=== PATIENT | female | born 1945 | race African-American/Black ===

== ENCOUNTER 2019-11-14 13:07 | Inpatient (IN) ==
[2019-11-14] MEDS ORDERED: ALBUTEROL 2.5 MG/3 ML NEB RESP TX PRN (15:16)
[2019-11-14] MEDS ORDERED: ONDANSETRON 4 MG/2 ML VIAL IV PRN (15:16)
[2019-11-14] MEDS ORDERED: FUROSEMIDE 40 MG/4 ML VIAL IV ONE (15:24)
[2019-11-14] MEDS ORDERED: methylPREDNISolone SOD SUC 40 MG/1 ML VIAL IV SCH (15:30)
[2019-11-14 16:51] LABS: ABG Base Excess -0.4 MMOL/L (-2.5-2.5); ABG PCO2 42.8 MM HG (35-48); ABG PH 7.376 (7.35-7.45); ABG PO2 76.6 MM HG (80-95); ABG TCO2 20.8 MMOL/L (23-27)
[2019-11-14] MEDS: ASCORBIC ACID 500 MG TABLET PO SCH (17:08)
[2019-11-14] MEDS: ZINC GLUCONATE 50 MG TABLET PO SCH (17:08)
[2019-11-14] MEDS: methylPREDNISolone SOD SUC 125 MG/2 ML VIAL IV SCH ×2 (17:09→21:11)
[2019-11-14] MEDS: AZITHROMYCIN INJ 500 MG in SODIUM CHLORIDE 0.9% 250 ML IV SCH (17:10)
[2019-11-14 17:51] LABS: Basophils % 0.2 % (0.0-0.8); Hemoglobin 17.6 GM/DL (12.0-16.0); Immature Granulocytes % 0.2 %; Immature Granulocytes Absolute 0.01 #; Lymphocytes # 0.6 10*3/uL (1.4-4.0); Lymphocytes % 13.9 % (21.3-54.2); Mean Platelet Volume 10.8 FL (9.6-12.0); Monocytes % 3.9 % (1.7-12.7); Neutrophils % 81.8 % (38.7-73.9); Platelet Count 187 T/CUMM (130-400); Red Blood Count 5.73 MC/CUMM (3.8-5.5); Red Cell Distribution Width 13.4 % (9.3-17.3); White Blood Count 4.6 T/CUMM (4-12)
[2019-11-14 18:07] LABS: Calcium 9.7 MG/DL (8.5-10.1); Osmolality,Calculated 284.3 MOS/KG (273-304)
[2019-11-14 18:09] LABS: INR 1.7; PT Patient Result 17.4 SECS (9.8-11.9)
[2019-11-14 18:18] LABS: Ferritin 205.2 ng/ml (8-252)
[2019-11-14] MEDS ORDERED: WARFARIN 5 MG TABLET PO ONE (18:38)
[2019-11-14] MEDS ORDERED: PNEUMOCOCCAL VACCINE (13 VALENT) 0.5 ML SYRINGE IM ONE (19:29)
[2019-11-14] MEDS: PHENYTOIN ER 100 MG CAPSULE PO SCH (20:40)
[2019-11-14] MEDS: ALBUTEROL/IPRATROPIUM 3 ML NEB RESP TX SCH (23:09)
[2019-11-15] MEDS: ALBUTEROL/IPRATROPIUM 3 ML NEB RESP TX SCH ×2 (01:16→09:53)
[2019-11-15 03:12] LABS: Basophils % 0.2 % (0.0-0.8); Hematocrit 51.2 VOL% (35.7-47.0); Hemoglobin 16.7 GM/DL (12.0-16.0); Immature Granulocytes % 0.2 %; Immature Granulocytes Absolute 0.01 #; Lymphocytes # 0.8 10*3/uL (1.4-4.0); Lymphocytes % 13.6 % (21.3-54.2); Mean Corpuscular HGB Conc 32.6 GM/DL (32-36); Mean Corpuscular Volume 92.9 FL (87-102); Mean Platelet Volume 10.8 FL (9.6-12.0); Monocytes % 2.6 % (1.7-12.7); Neutrophils % 83.4 % (38.7-73.9); Platelet Count 189 T/CUMM (130-400); Red Blood Count 5.51 MC/CUMM (3.8-5.5); White Blood Count 6.1 T/CUMM (4-12)
[2019-11-15 03:25] LABS: Calcium 8.9 MG/DL (8.5-10.1); Osmolality,Calculated 285.3 MOS/KG (273-304)
[2019-11-15] MEDS: methylPREDNISolone SOD SUC 125 MG/2 ML VIAL IV SCH ×2 (05:15→09:38)
[2019-11-15] MEDS ORDERED: hydrALAZINE 20 MG/1 ML VIAL IV PRN (08:29)
[2019-11-15] MEDS ORDERED: ENOXAPARIN 40 MG/0.4 ML SYRINGE SUBCUT SCH (09:30)
[2019-11-15] MEDS: LISINOPRIL/HCTZ 20-25 MG TABLET PO SCH (09:31)
[2019-11-15] MEDS: MULTIVITAMIN (CENTRUM) TABLET PO SCH (09:31)
[2019-11-15] MEDS: ZINC GLUCONATE 50 MG TABLET PO SCH (09:31)
[2019-11-15] MEDS: METOPROLOL SUCCINATE XL 50 MG TABLET PO SCH (09:32)
[2019-11-15] MEDS: POTASSIUM CHLORIDE 20 MEQ TABLET PO SCH (09:32)
[2019-11-15] MEDS: amLODIPine 10 MG TABLET PO SCH (09:32)
[2019-11-15] MEDS: PANTOPRAZOLE 40 MG TABLET PO SCH (09:32)
[2019-11-15] MEDS: methylPREDNISolone SOD SUC 40 MG/1 ML VIAL IV SCH ×3 (09:32→23:51)
[2019-11-15] MEDS: PHENYTOIN ER 100 MG CAPSULE PO SCH ×2 (09:32→21:08)
[2019-11-15] MEDS: ASCORBIC ACID 500 MG TABLET PO SCH (09:32)
[2019-11-15] MEDS: NON-FORMULARY MEDICATION (Fluticasone-Umeclidin-Vilanter [Trelegy Ellipta] 100-62.5-25 mcg INH SCH (09:37)
[2019-11-15] MEDS: SIMVASTATIN 20 MG TABLET PO SCH (09:39)
[2019-11-15] MEDS: ALBUTEROL INHALER 18 GM INH SCH ×2 (14:27→18:07)
[2019-11-15] MEDS: AZITHROMYCIN INJ 500 MG in SODIUM CHLORIDE 0.9% 250 ML IV SCH (17:00)
[2019-11-16] MEDS ORDERED: ENOXAPARIN 60 MG/0.6 ML SYRINGE SUBCUT SCH (08:00)
[2019-11-16] MEDS: PHENYTOIN ER 100 MG CAPSULE PO SCH (08:45)
[2019-11-16] MEDS: SIMVASTATIN 20 MG TABLET PO SCH (08:45)
[2019-11-16] MEDS: LISINOPRIL/HCTZ 20-25 MG TABLET PO SCH (08:45)
[2019-11-16] MEDS: ASCORBIC ACID 500 MG TABLET PO SCH (08:46)
[2019-11-16] MEDS: ZINC GLUCONATE 50 MG TABLET PO SCH (08:46)
[2019-11-16] MEDS: MULTIVITAMIN (CENTRUM) TABLET PO SCH (08:46)
[2019-11-16] MEDS: POTASSIUM CHLORIDE 20 MEQ TABLET PO SCH (08:46)
[2019-11-16] MEDS: METOPROLOL SUCCINATE XL 50 MG TABLET PO SCH (08:47)
[2019-11-16] MEDS: amLODIPine 10 MG TABLET PO SCH (08:47)
[2019-11-16] MEDS: PANTOPRAZOLE 40 MG TABLET PO SCH (08:47)
[2019-11-16] MEDS: methylPREDNISolone SOD SUC 40 MG/1 ML VIAL IV SCH (08:47)
[2019-11-16] MEDS ORDERED: FUROSEMIDE 40 MG TABLET PO SCH (09:00)
[2019-11-16] MEDS: ALBUTEROL INHALER 18 GM INH SCH ×2 (09:21→13:12)
[2019-11-16] MEDS ORDERED: methylPREDNISolone SOD SUC 40 MG/1 ML VIAL IV SCH (09:30)
[2019-11-16] MEDS: NON-FORMULARY MEDICATION (Fluticasone-Umeclidin-Vilanter [Trelegy Ellipta] 100-62.5-25 mcg INH SCH (10:04)
[2019-11-16 11:38] VITALS: BP 100/64
[2019-11-16] MEDS ORDERED: PNEUMOCOCCAL VACCINE (13 VALENT) 0.5 ML SYRINGE IM ONE (13:00)
== END 2019-11-16 13:51 | disposition home health service (06) | DRG 190 ==
LOC: EDBD → SUATTDRO 14:38 → N.CC 14:38 → N.4E 11-15 13:52
PROVIDERS: ADMIT Internal Medicine; ATTEND Internal Medicine